=== PATIENT | female | born 1950 | race Caucasian/White ===

== ENCOUNTER → 2017-06-17 | Outpatient (CLI) | payer OTHER ==
[~2017-06-17] MED LIST: AMARYL2 MG PO; ASPIR 8181 MG PO; ATORVASTATIN CA40 MG PO; BENTYL 20 MG TA20 M1 PO; COQ-10100 MG PO; LANTUS; LANTUS INJECTION; LANTUS100 UNIT/M; LISINOPRIL10 MG PO; LYRICA 50 MG50 MG PO; LYRICA100 MG PO; METFORMIN HCL500 MG PO; MGO400 MG PO; NAMENDA 5 MG TAB5 M1 PO; NORVASC5 MG PO; ONDANSETRON HCL8 MG PO; QUESTRAN PACKET4 GM PO; RESTASIS1 EACH OPHTHALMIC; SLOW-MAG64 M1 PO; TRAMADOL 50 MG50 MG PO; TYLENOL ARTHRI650 MG PO; VITAMIN B-12500 MCG PO; VITAMIN D2000 UNIT PO; VOLTAREN GEL 1100 G2 TOP; ZANAFLEX2 MG PO; ZETIA10 MG PO
[2017-06-17 11:29] LABS: HEMOGLOBIN 12.7 gm/dL (12.0-15.0); MCH 27.4 pg (26.0-34.0); MCHC 32.6 g/dL (28.0-37.0); MCV 84.1 fL (80.0-100.0); RBC 4.63 mil/uL (4.20-5.00); RDW 15.2 % (10.5-14.5); WBC 13.2 thou/uL (4.0-11.0)
[2017-06-17 11:43] LABS: ALBUMIN 3.7 g/dL (3.4-5.0); ANION GAP 8 mmol/L (7-16); BUN 19 mg/dL (7-18); CALCIUM 9.7 mg/dL (8.5-10.1); CHLORIDE 100 mmol/L (98-107); CO2 28 mmol/L (21-32); CREATININE 1.5 mg/dL (0.6-1.0); GLUCOSE 185 mg/dL (74-106); POTASSIUM 5.1 mmol/L (3.5-5.1); SGOT 31 U/L (15-37); SGPT 47 U/L (30-65); SODIUM 136 mmol/L (136-145); TOTAL BILIRUBIN 0.5 mg/dL (<0.1-1.0); TOTAL PROTEIN 6.8 g/dL (6.4-8.2)
[2017-06-17 12:11] LABS: TSH 1.704 uIU/mL (0.358-3.740)
== END ==
LOC: SEN 09:43
PROVIDERS: Registered Nurse
DX: E11.9 Type 2 diabetes mellitus without complications (principal); I10 Essential (primary) hypertension; N28.89 Other specified disorders of kidney and ureter; I73.9 Peripheral vascular disease, unspecified; E11.40 Type 2 diabetes mellitus with diabetic neuropathy, unspecified; Z79.4 Long term (current) use of insulin

== ENCOUNTER → 2017-07-01 | Outpatient (CLI) | payer OTHER | LOC: SEN 08:24 | DX: E11.42 Type 2 diabetes mellitus with diabetic polyneuropathy (principal); G31.84 Mild cognitive impairment of uncertain or unknown etiology; I10 Essential (primary) hypertension; I63.8 Other cerebral infarction; M25.559 Pain in unspecified hip; M54.9 Dorsalgia, unspecified; Z79.4 Long term (current) use of insulin; Z96.0 Presence of urogenital implants ==

== ENCOUNTER → 2017-08-06 | Outpatient (CLI) | payer OTHER ==
[~2017-08-06] VITALS: Ht 160 cm; Wt 64.0 kg
[2017-08-06 13:27] VITALS: BP 158/101
[2017-08-06 14:56] LABS: ABSOLUTE NEUTROPHILS 7.3 thou/uL (1.4-8.2); BASOPHILS 0.8 % (0.0-2.0); EOSINOPHILS 2.3 % (0.0-3.0); HEMATOCRIT 39.4 % (37.0-47.0); MCHC 33.1 g/dL (28.0-37.0); MCV 81.6 fL (80.0-100.0); MONOCYTES 6.8 % (1.0-8.0); PLATELET COUNT 183 thou/uL (150-400); POLYS 74.1 % (36.0-66.0); RBC 4.83 mil/uL (4.20-5.00); WBC 9.8 thou/uL (4.0-11.0)
[2017-08-06 15:00] LABS: URINE BILIRUBIN NEGATIVE (Negative); URINE BLOOD NEGATIVE (Negative); URINE CLARITY CLEAR; URINE COLOR YELLOW; URINE GLUCOSE-RANDOM* 3+ (Negative); URINE KETONES NEGATIVE (Negative); URINE LEUKOCYTES-REFLEX NEGATIVE (Negative); URINE NITRITE-REFLEX NEGATIVE (Negative); URINE PROTEIN (DIPSTICK) NEGATIVE (Negative); URINE SPECIFIC GRAVITY 1.025 (1.005-1.035); URINE UROBILINOGEN 0.2 E.U./dl (0.2-1.0)
[2017-08-06 15:12] LABS: ALBUMIN 3.6 g/dL (3.4-5.0); CALCIUM 9.5 mg/dL (8.5-10.1); CREATININE 1.1 mg/dL (0.6-1.0); MAGNESIUM 1.7 mg/dL (1.8-2.4); POTASSIUM 4.3 mmol/L (3.5-5.1); TOTAL BILIRUBIN 0.3 mg/dL (<0.1-1.0); TOTAL PROTEIN 7.1 g/dL (6.4-8.2)
[2017-08-06 22:09] LABS: IgA 73 mg/dL (87-352); IgG 435 mg/dL (700-1600)
== END ==
LOC: SEN 08:45
PROVIDERS: Registered Nurse
DX: R19.7 Diarrhea, unspecified (principal); R10.9 Unspecified abdominal pain; E11.9 Type 2 diabetes mellitus without complications

== ENCOUNTER → 2017-11-21 | Outpatient (CLI) | payer OTHER, MEDICARE ==
[~2017-11-21] MED LIST changes: -LANTUS; -LANTUS100 UNIT/M; -RESTASIS1 EACH OPHTHALMIC; -SLOW-MAG64 M1 PO; -VITAMIN B-12500 MCG PO; -VITAMIN D2000 UNIT PO
[2017-11-21 13:32] VITALS: BP 149/87
[2017-11-21 14:47] LABS: ABSOLUTE NEUTROPHILS 7.3 thou/uL (1.4-8.2); BASOPHILS 0.9 % (0.0-2.0); EOSINOPHILS 6.2 % (0.0-3.0); HEMATOCRIT 41.8 % (37.0-47.0); HEMOGLOBIN 13.6 gm/dL (12.0-15.0); LYMPHOCYTES 18.7 % (24.0-44.0); MCH 26.1 pg (26.0-34.0); MCHC 32.5 g/dL (28.0-37.0); MCV 80.3 fL (80.0-100.0); MONOCYTES 6.5 % (1.0-8.0); PLATELET COUNT 195 thou/uL (150-400); POLYS 67.7 % (36.0-66.0); RBC 5.21 mil/uL (4.20-5.00); RDW 15.9 % (10.5-14.5); WBC 10.8 thou/uL (4.0-11.0)
[2017-11-21 15:03] LABS: ALBUMIN 3.6 g/dL (3.4-5.0); ANION GAP 10 mmol/L (7-16); BUN 12 mg/dL (7-18); CALCIUM 9.6 mg/dL (8.5-10.1); CHLORIDE 105 mmol/L (98-107); CHOLESTEROL 256 mg/dL (<200); CO2 27 mmol/L (21-32); CREATININE 1.3 mg/dL (0.6-1.0); GLUCOSE 215 mg/dL (74-106); HDL CHOLESTEROL 39 mg/dL (>40); LDL CHOLESTEROL 143 mg/dL (<100); MAGNESIUM 1.5 mg/dL (1.8-2.4); SGOT 19 U/L (15-37); SGPT 34 U/L (30-65); SODIUM 142 mmol/L (136-145); TC:HDL 6.6 Ratio (Not establshd); TOTAL BILIRUBIN 0.3 mg/dL (<0.1-1.0); TOTAL PROTEIN 7.1 g/dL (6.4-8.2); TRIGLYCERIDE 371 mg/dL (<150); VLDL 74 mg/dL (<40)
[2017-11-21 15:28] LABS: TSH 0.92 uIU/mL (0.358-3.740)
== END ==
LOC: SEN 07:58
PROVIDERS: Nurse Practitioner Family
DX: R63.4 Abnormal weight loss (principal); I10 Essential (primary) hypertension; E11.9 Type 2 diabetes mellitus without complications; F03.90 Unspecified dementia, unspecified severity, without behavioral disturbance, psychotic disturbance, mood disturbance, and anxiety; M62.838 Other muscle spasm

== ENCOUNTER → 2017-11-27 | Outpatient (CLI) | payer OTHER ==
[~2017-11-27] MED LIST changes: +LANTUS; +LANTUS100 UNIT/M
[2017-11-27 14:28] VITALS: BP 162/88
[2017-11-28 02:09] LABS: GLYCOHEMOGLOBIN (HGB A1C) 6.1 % (4.8-5.6)
== END ==
LOC: SEN 10:14
PROVIDERS: Nurse Practitioner Family
DX: Z09 Encounter for follow-up examination after completed treatment for conditions other than malignant neoplasm (principal); I10 Essential (primary) hypertension; E11.40 Type 2 diabetes mellitus with diabetic neuropathy, unspecified

== ENCOUNTER → 2018-01-05 | Outpatient (CLI) | payer OTHER ==
[~2018-01-05] MED LIST changes: +RESTASIS1 EACH OPHTHALMIC; +SLOW-MAG64 M1 PO; +VITAMIN B-12500 MCG PO; +VITAMIN D2000 UNIT PO
[2018-01-05 10:18] VITALS: BP 138/801
[2018-01-05 12:03] LABS: ABSOLUTE NEUTROPHILS 8.1 thou/uL (1.4-8.2); BASOPHILS 0.4 % (0.0-2.0); EOSINOPHILS 3.2 % (0.0-3.0); HEMATOCRIT 40.2 % (37.0-47.0); HEMOGLOBIN 13.1 gm/dL (12.0-15.0); LYMPHOCYTES 18.1 % (24.0-44.0); MCH 26.3 pg (26.0-34.0); MCHC 32.6 g/dL (28.0-37.0); MCV 80.9 fL (80.0-100.0); MONOCYTES 5.3 % (1.0-8.0); RBC 4.97 mil/uL (4.20-5.00); RDW 15.4 % (10.5-14.5)
[2018-01-05 12:18] LABS: ALBUMIN 3.7 g/dL (3.4-5.0); ANION GAP 8 mmol/L (7-16); BUN 18 mg/dL (7-18); CALCIUM 9.3 mg/dL (8.5-10.1); CHLORIDE 104 mmol/L (98-107); CHOLESTEROL 147 mg/dL (<200); CO2 28 mmol/L (21-32); CREATININE 1.2 mg/dL (0.6-1.0); GLUCOSE 216 mg/dL (74-106); HDL CHOLESTEROL 39 mg/dL (>40); LDL CHOLESTEROL 84 mg/dL (<100); MAGNESIUM 1.7 mg/dL (1.8-2.4); POTASSIUM 4.5 mmol/L (3.5-5.1); SGOT 20 U/L (15-37); SGPT 29 U/L (30-65); SODIUM 140 mmol/L (136-145); TC:HDL 3.8 Ratio (Not establshd); TOTAL BILIRUBIN 0.3 mg/dL (<0.1-1.0); TOTAL PROTEIN 7.5 g/dL (6.4-8.2); TRIGLYCERIDE 123 mg/dL (<150); VLDL 25 mg/dL (<40)
[2018-01-05 12:44] LABS: TSH 0.844 uIU/mL (0.358-3.740)
[2018-01-05 12:49] LABS: PLATELET COUNT 172 thou/uL (150-400); PLATELET ESTIMATE NORMAL
[2018-01-05 13:38] LABS: URINE BILIRUBIN NEGATIVE (Negative); URINE BLOOD NEGATIVE (Negative); URINE CLARITY CLOUDY; URINE COLOR YELLOW; URINE GLUCOSE-RANDOM* TRACE (Negative); URINE KETONES NEGATIVE (Negative); URINE LEUKOCYTES 2+ (Negative); URINE NITRITE POSITIVE (Negative); URINE PROTEIN (DIPSTICK) NEGATIVE (Negative); URINE SPECIFIC GRAVITY >= 1.030 (1.005-1.035); URINE UROBILINOGEN 0.2 E.U./dl (0.2-1.0)
[2018-01-05 13:44] LABS: SQUAMOUS 4-10 Moderate /LPF (0-3); URINE WBC >25 Many /HPF (0-5)
[2018-01-05 13:45] LABS: BACTERIA >30 Many /HPF (None Seen); CASTS None Seen /LPF (None Seen)
[2018-01-05 13:47] LABS: CRYSTALS None Seen /LPF (None Seen); URINE RBC None Seen /HPF (0-2)
== END ==
LOC: SEN 08:34
PROVIDERS: Nurse Practitioner Family
DX: M79.89 Other specified soft tissue disorders (principal); I10 Essential (primary) hypertension; E11.9 Type 2 diabetes mellitus without complications; E78.5 Hyperlipidemia, unspecified

== ENCOUNTER → 2018-03-16 | Outpatient (CLI) | payer OTHER ==
[2018-03-16 10:21] VITALS: BP 157/87
[2018-03-17 01:09] LABS: GLYCOHEMOGLOBIN (HGB A1C) 7.2 % (4.8-5.6)
== END ==
LOC: SEN 08:34
PROVIDERS: Nurse Practitioner Family
DX: Z09 Encounter for follow-up examination after completed treatment for conditions other than malignant neoplasm (principal); I10 Essential (primary) hypertension; E78.00 Pure hypercholesterolemia, unspecified; E78.5 Hyperlipidemia, unspecified; M19.90 Unspecified osteoarthritis, unspecified site; E11.40 Type 2 diabetes mellitus with diabetic neuropathy, unspecified; Z79.4 Long term (current) use of insulin

== ENCOUNTER → 2018-08-21 | Outpatient (CLI) | payer OTHER ==
[2018-08-21 11:46] LABS: ABSOLUTE NEUTROPHILS 8.5 thou/uL (1.4-8.2); BASOPHILS 0.6 % (0.0-2.0); EOSINOPHILS 2.2 % (0.0-3.0); HEMATOCRIT 41.3 % (37.0-47.0); HEMOGLOBIN 13.3 gm/dL (12.0-15.0); MCH 26.6 pg (26.0-34.0); MCHC 32.3 g/dL (28.0-37.0); MCV 82.3 fL (80.0-100.0); MONOCYTES 6.8 % (1.0-8.0); POLYS 72.4 % (36.0-66.0); RBC 5.01 mil/uL (4.20-5.00); RDW 14.8 % (10.5-14.5); WBC 11.8 thou/uL (4.0-11.0)
[2018-08-21 11:56] LABS: ALBUMIN 3.7 g/dL (3.4-5.0); CALCIUM 9.8 mg/dL (8.5-10.1); CREATININE 1.3 mg/dL (0.6-1.0); MAGNESIUM 1.8 mg/dL (1.8-2.4); POTASSIUM 4.3 mmol/L (3.5-5.1); TOTAL BILIRUBIN 0.3 mg/dL (<0.1-1.0); TOTAL PROTEIN 7.3 g/dL (6.4-8.2)
[2018-08-21 12:28] LABS: PLATELET COUNT 172 thou/uL (150-400)
[2018-08-22 01:09] LABS: GLYCOHEMOGLOBIN (HGB A1C) 9.4 % (4.8-5.6)
== END ==
LOC: SEN 08:55 → RAD 08:55
PROVIDERS: Nurse Practitioner Family
DX: M79.672 Pain in left foot (principal)

== ENCOUNTER → 2018-09-04 | Outpatient (CLI) | payer OTHER | LOC: SEN 08:50 | DX: E11.65 Type 2 diabetes mellitus with hyperglycemia (principal); Z79.4 Long term (current) use of insulin ==

== ENCOUNTER 2019-05-12 12:41 | Emergency (ER) | payer OTHER ==
[~2019-05-12] VITALS: Ht 160 cm; Wt 65.8 kg
[2019-05-12 13:11] LABS: ABSOLUTE NEUTROPHILS 6.3 thou/uL (1.4-8.2); HEMATOCRIT 42.2 % (37.0-47.0); HEMOGLOBIN 13.3 gm/dL (12.0-15.0); LYMPHOCYTES 19.6 % (24.0-44.0); MCH 26.1 pg (26.0-34.0); MCHC 31.6 g/dL (28.0-37.0); MCV 82.5 fL (80.0-100.0); MONOCYTES 6.2 % (1.0-8.0); PLATELET COUNT 169 thou/uL (150-400); POLYS 68.2 % (36.0-66.0); RBC 5.11 mil/uL (4.20-5.00); RDW 15.3 % (10.5-14.5); WBC 9.2 thou/uL (4.0-11.0)
[2019-05-12 13:24] LABS: CALCIUM 9.9 mg/dL (8.5-10.1); CREATININE 1.3 mg/dL (0.6-1.0); POTASSIUM 4.6 mmol/L (3.5-5.1)
[2019-05-12 13:29] LABS: ALBUMIN 3.6 g/dL (3.4-5.0); TOTAL BILIRUBIN 0.5 mg/dL (<0.1-1.0); TOTAL PROTEIN 6.9 g/dL (6.4-8.2)
[2019-05-12 14:13] LABS: URINE BILIRUBIN NEGATIVE (Negative); URINE BLOOD 1+ (Negative); URINE CLARITY CLOUDY; URINE COLOR YELLOW; URINE GLUCOSE-RANDOM* NEGATIVE (Negative); URINE KETONES NEGATIVE (Negative); URINE LEUKOCYTES-REFLEX 3+ (Negative); URINE NITRITE-REFLEX NEGATIVE (Negative); URINE PROTEIN (DIPSTICK) TRACE (Negative); URINE SPECIFIC GRAVITY >= 1.030 (1.005-1.035); URINE UROBILINOGEN 0.2 E.U./dl (0.2-1.0)
[2019-05-12 14:28] LABS: BACTERIA-REFLEX >30 Many /HPF (None Seen); CASTS None Seen /LPF (None Seen); SQUAMOUS None Seen /LPF (0-3)
[2019-05-12 14:29] LABS: CRYSTALS None Seen /LPF (None Seen); URINE RBC 3-10 Few /HPF (0-2)
[2019-05-12] MEDS ORDERED: BACTRIM DS TAB1 EAC1 PO (16:02)
[2019-05-12 16:33] VITALS: BP 135/84
--- NOTE | 2019-05-14 12:49 | EKG ---
[address] [address] ELECTROCARDIOGRAM REPORT Name: PATY CERON [facility] [id number] Admission: 05/12/19 Attend Phys: Discharge: 05/12/19 Date of : 52 Report #: [id number] THIS REPORT FOR: //name// [facility] ED Test Date: 2019-05-12 Test Time: 14:17:35 Pat Name: PATY CERON Department: Room: Gender: F Abnormal Psychology Teacher: : 1950 Requested By: Qiana Lopez Order Number: [id number] MD: Wily David Measurements Intervals [place] Rate: 75 P: 32 VT: 194 QRS: -13 QRSD: 87 T: 65 QT: 412 QTc: 461 Interpretive Statements Sinus rhythm Normal tracing No previous ECG available for comparison Electronically Signed On 05-14-2019 12:49:37 DATA CENTER OPERATOR by Wily David [email or web address] <ELECTRONICALLY SIGNED> By: Wily David MD, [facility] 05/14/19 1249 1417 1417 Wily David MD, FACC /EPI
== END 2019-05-12 16:59 | disposition home or self-care (01) ==
LOC: ER 12:41
PROVIDERS: Emergency Medicine
DX: N39.0 Urinary tract infection, site not specified (principal); E86.0 Dehydration; A41.9 Sepsis, unspecified organism; I10 Essential (primary) hypertension; E11.40 Type 2 diabetes mellitus with diabetic neuropathy, unspecified; E78.00 Pure hypercholesterolemia, unspecified; M19.90 Unspecified osteoarthritis, unspecified site; Z90.49 Acquired absence of other specified parts of digestive tract; Z79.4 Long term (current) use of insulin; Z88.1 Allergy status to other antibiotic agents

== ENCOUNTER 2019-05-16 13:03 | Inpatient (IN) | payer OTHER ==
[~2019-05-16] VITALS: Ht 160 cm; Wt 65.8 kg
[~2019-05-16 13:03] MED LIST changes: +BACTRIM DS TAB1 EAC1 PO
[2019-05-16 13:04] VITALS: BP 130/70
[2019-05-16 16:00] LABS: ABSOLUTE NEUTROPHILS 6.4 thou/uL (1.4-8.2); BASOPHILS 0.8 % (0.0-2.0); EOSINOPHILS 4.8 % (0.0-3.0); HEMATOCRIT 42.6 % (37.0-47.0); HEMOGLOBIN 13.6 gm/dL (12.0-15.0); LYMPHOCYTES 19.7 % (24.0-44.0); MCH 26.3 pg (26.0-34.0); MCHC 31.8 g/dL (28.0-37.0); MCV 82.6 fL (80.0-100.0); MONOCYTES 5.2 % (1.0-8.0); POLYS 69.5 % (36.0-66.0); RBC 5.16 mil/uL (4.20-5.00); RDW 15.6 % (10.5-14.5); WBC 9.2 thou/uL (4.0-11.0)
[2019-05-16 16:04] LABS: ANION GAP 13 mmol/L (7-16); BUN 18 mg/dL (7-18); CALCIUM 9.7 mg/dL (8.5-10.1); CHLORIDE 101 mmol/L (98-107); CO2 22 mmol/L (21-32); CREATININE 1.5 mg/dL (0.6-1.0); GLUCOSE 65 mg/dL (74-106); POTASSIUM 4.3 mmol/L (3.5-5.1); SODIUM 136 mmol/L (136-145)
[2019-05-16 16:13] LABS: TROPONIN-I <0.06 ng/mL (<0.06)
[2019-05-16 16:21] LABS: LARGE PLATELETS RARE; PLATELET COUNT 161 thou/uL (150-400)
[2019-05-16] MEDS ORDERED: BUPROPION XL300 MG PO (18:03)
[2019-05-16] MEDS ORDERED: ARICEPT10 M1 PO (18:03)
[2019-05-16] MEDS ORDERED: LISINOPRIL-HCT1 EACH PO (18:04)
[2019-05-16] MEDS ORDERED: PROBIOTIC1 EAC2 PO (18:05)
[2019-05-16] MEDS ORDERED: HUMALOG100 UNIT/2 SUBQ (18:06)
[2019-05-16] MEDS ORDERED: ONDANSETRON ODT8 MG PO (18:08)
[2019-05-16] MEDS ORDERED: TIZANIDINE HCL2 M1 PO (18:08)
[2019-05-16] MEDS ORDERED: TRAZODONE HCL50 MG PO (18:09)
[2019-05-16 18:16] VITALS: BP 123/60
[2019-05-16 18:35] VITALS: BP 119/59
--- NOTE | 2019-05-16 22:50 | NUR ---
PATIENT ARRIVED VIA CART FROM THE ED AT 1845 WITH HER SISTER. PATIENT IS ALERT AND ORIENTED X4. ORDERS REVIEWED AND IVF STARTED, ALSO PATIENT GIVEN SOMETHING FOR PAIN WITH GOOD RESULTS. PATIENTS SISTER IS HER DPOA AND SHE DOES NOT SIGN FOR HERSELF, THEREFORE, FALL CONTRACT, ETC. WILL BE REVIEWED AND SIGNED FOR WHEN SISTER RETURNS 05/17/19. WILL MONITOR.
[2019-05-17 04:10] VITALS: BP 141/76
--- NOTE | 2019-05-17 04:40 | NUR ---
PATIENT WAS NOTICED VOMITING BY THIS NURSE SHE WAS CALLING OUT. APPROXIMATELY 200ML OF CLEAR EMESIS WITH SOME UNIDENTIFIED CHUNKS FROM PREVIOUS DINNER AT HOME. RETAIL SALES TEAMMATE (HARSH) CALLED AND ORDER GIVEN FOR NAUSEA WHICH WAS GIVEN TO PATIENT WITH GOOD RESULTS. BS MONITORED PER ORDER. IVF INFUSING W/O COMPLICATION. RESTING WELL. WILL MONITOR.
--- NOTE | 2019-05-17 08:13 | EKG ---
[address] [address] ELECTROCARDIOGRAM REPORT Name: PATY CERON Room #: 445-P ADM IN M.R.#: [id number] Admission: 05/16/19 Attend Phys: Jake Trevino MD Discharge: Date of : 52 Report #: [id number] THIS REPORT FOR: //name// [facility] ED Test Date: 2019-05-16 Test Time: 15:56:18 Pat Name: PATY CERON Department: Room: [facility] Gender: F Acid Strength Inspector: GUSTABO : 1950 Requested By: Justen Coy Order Number: [id number] MD: Carmelo Espinosa Measurements Intervals [place] Rate: 89 P: 23 CA: 179 QRS: -18 QRSD: 88 T: 76 QT: 369 QTc: 449 Interpretive Statements Sinus rhythm Probable left atrial enlargement Borderline left axis deviation Baseline wander in lead(s) II,III,aVF Compared to ECG 05/12/2019 14:17:35 No significant changes Electronically Signed On 05-17-2019 8:13:07 E COMMERCE WEB DEVELOPER by Carmelo Espinosa [email or web address] <ELECTRONICALLY SIGNED> By: Carmelo Espinosa MD 05/17/19 0813 1556 1556 Carmelo Espinosa MD /EPI
[2019-05-17 08:59] VITALS: BP 123/79
--- NOTE | 2019-05-17 09:26 | NUR ---
Nutrition: Assessed due to consult for DM diet education. Admit: UTI, frequent falls, weakness. Hx: diabetes, stroke, neuropathy. Reports DM x 12 yrs. On insulin at home, but unable to share what DM meds she takes. Sister/district ranger assists w/ meds as pt is "unable to keep them straight." Last A1c 9.4% per 08/2018. States she is due for PCP visit this month. States insulin dose was increased after last A1c, hoping it will be lower. Mindful of PO intake and reads CHO on labels closely. Discouraged regular soda consumption. Discussed CHO content of various foods, recommended she limit meals to 45 g CHO and 15 g at snacks paired w/ protein. She looks for lots of items w/ < 10 g CHO. Has to watch food intake closely w/ IBS; avoids high fiber/greasy. Denies further nutrition ed neesd or takehome materials. Low nutrition risk.
[2019-05-17 11:35] LABS: CALCIUM 8.8 mg/dL (8.5-10.1); CREATININE 1.4 mg/dL (0.6-1.0); POTASSIUM 4.9 mmol/L (3.5-5.1)
--- NOTE | 2019-05-17 12:23 | NUR ---
INITIAL ASSESSMENT: Pt evaluated for d/c planning needs. Reviewed chart and spoke with nurse, PT and pt. Pt is alert and oriented. Pt said she had stroke about 2 years ago and went to [facility] inpatient rehab. Pt was d/c home from rehab with home health, but pt does not recall name of company. Pt lives alone in apartment and was independent with ADL's prior to admission. Pt said she has fallen 6 times since Halloween. Pt's sister is supportive and involved and lives about 3 minutes from pt's apartment. Pt is interested in going to inpatient rehab. Asked rehabilitation program coordinator to evaluate pt. Will remain available to assist as needed.
--- NOTE | 2019-05-17 14:45 | NUR ---
ASSUMED CARE OF THE PT AT 0700. PT IS MODERATE ASSIST AND REQUIRES ADDITIONAL TIME TO GET TO THE BEDSIDE COMMODE. PTS SISTER IS DPOA AND NEEDS TO SIGN THE PPWK FOR THE PT. PT HAS HAD EMESIS SINCE 3AM AND HAS BEEN TREATED WITH MEDICATION, SEE EMAR. A UA IS NEEDED FOR THE PT FOR LAB. PT HAS FALLEN 5X THIS MONTH AND 3X THIS WEEK AT HOME. SISTER WANTS FRAME STYLIST TO PROVIDE INFORMATION ON EITHER HOME HEALTH CARE OR ASSISTED LIVING FACILITY. L LEG BRACE, SCDS AND BRUSING ON THE R SIDE. PTS PAIN IS BEING TREATED WITH PAIN MEDICATION, SEE EMAR. PT TRANSFERED TO [facility] AND REPORT WAS GIVEN TO THE NURSE.
--- NOTE | 2019-05-17 15:27 | NUR ---
SW reviewed chart and spoke with nursing and attending physician. [facility] today. [facility] consult ordered to evaluate pt for possible admission to inpt acute rehab. Will need insurance authorization for post-acute. ANGELITO is following to assist as needed with discharge planning.
[2019-05-17 16:42] VITALS: BP 128/71
--- NOTE | 2019-05-17 19:50 | NUR ---
PATIENT TRANSFERRED FROM [address] [place] [address], REPORT FROM OLIVIA/RN. PATIENT ALERT AND ORIENTED X 3. PATIENT UP WITH MOD. ASSIST WITH GAIT BELT AND WALKER. LEFT LEG BRACE, BRUISE TO RIGHT SIDE. PATIENT IS A FALL RISK, HAS FALLEN MULTIPLE TIMES IN THE PAST 2 WEEKS. MRI OF HEAD DONE TODAY. CONSULT CALLED FOR REHAB/[facility]. BLOOD SUGAR MONITORING ORDERED S/S INSULIN GIVEN PER S/S. PATIENT C/O NAUSEA AND VOMITING NOTED MODERATE AMT. OF YELLOWISH EMESIS NOTED. THIS RN CALLED JOHN BENÍTEZ ORDER FOR ZOFRAN 4MG IV Q6HRS/PRN AND START PROTONIX 40 MG IV DAILY, FIRST DOSE GIVEN AROUND 1430. PATIENT STATES STOMACH FEELS BETTER, SHE WAS ABLE TO EAT HER DINNER. LEFT FOREARM IV IN PLACE, FLUSHED AND REMAINS PATENT. WILL CONTINUE TO MONITOR.
[2019-05-17 20:45] VITALS: BP 108/54
--- NOTE | 2019-05-18 04:27 | NUR ---
Assumed pt care at 1900. A/OX4,VSS.Up with moderate assist to BSC. C/o pain to hips/right ribcage medicated with Tramadol with relief reported. IVF infusing via LAC without problems. Fall precautions in place,pt calls approp.
[2019-05-18 07:29] VITALS: BP 106/60
[2019-05-18 13:32] VITALS: BP 93/61
--- NOTE | 2019-05-18 14:22 | NUR ---
SW reviewed chart and spoke with nursing and attending physician. [facility] evaluated pt earlier today. Awaiting confirmation of rehab admission dx. [facility] will submit for insurance authorization if pt is appropriate. SW is following to assist as needed with discharge planning.
--- NOTE | 2019-05-18 15:51 | NUR ---
PATIENT SEEN THIS DATE BY RIVKA BRAY NP WITH DR. DORSEY. PATIENT MAY BE A POTENTIAL CANDIDATE FOR ACUTE REHAB. WILL CONTINUE TO FOLLOW AND SEE RESULTS FROM FURTHER TESTING. BANK VAULT ATTENDANT INFORMED. THANK YOU FOR THIS REFERRAL.
--- NOTE | 2019-05-18 19:49 | NUR ---
ASSUMED CARE OF PATIENT AT 0715, PATIENT ALERT AND ORIENTED X4. PATIENT UP WITH MOD-MAX ASSIST WITH GAIT BELT AND WALKER. PATIENT WORKED WITH PT/OT, RECIEVED A SHOWER TODAY. PATIENT WAS UP IN THE CHAIR FOR A COUPLE OF HRS. TODAY. PATIENT C/O PAIN WITH LEFT HIP AREA/ RECEIVED TYLENOL 650 MG X 1 THIS SHIFT. PATIENT HAS LEFT FOREARM IV WITH NS AT 75CC/HR. DR MACARIO SAW THE PATIENT TODAY, ORDER IN FROM [facility]/GENERAL ENGINEERING TEACHER OF REHAB FOR MRI OF LEFT HIP AND LUMBAR SPINE. MRI CALLED WILL DO MRI TOMORROW, SCREENING FORM DONE. WILL CONTINUE TO MONITOR. PATIENT WILL BE POSSIBLY GOING TO [facility] SOON.
[2019-05-18 20:40] VITALS: BP 112/66
--- NOTE | 2019-05-19 04:24 | NUR ---
Assumed pt care at 1900. Pt is A/OX4 with forgetfulness noted. VSS.C/o pain to right ribcage/left hip medicated with Tylenol with relief reported. Pt is up with moderate assist to BSC,voiding adequately without complaints of dysuria. PO intake encouraged and pt agreeable to. IVF infusing as well without problems.Pt supposed to have an MRI of the lumbar spine today. Fall precautions in place,calls approp. Will continue to monitor pt.
[2019-05-19 08:44] VITALS: BP 143/82
[2019-05-19 10:39] LABS: URINE BILIRUBIN NEGATIVE (Negative); URINE BLOOD NEGATIVE (Negative); URINE CLARITY CLEAR; URINE COLOR YELLOW; URINE GLUCOSE-RANDOM* NEGATIVE (Negative); URINE KETONES NEGATIVE (Negative); URINE LEUKOCYTES-REFLEX NEGATIVE (Negative); URINE NITRITE-REFLEX NEGATIVE (Negative); URINE PROTEIN (DIPSTICK) NEGATIVE (Negative); URINE SPECIFIC GRAVITY <= 1.005 (1.005-1.035); URINE UROBILINOGEN 0.2 E.U./dl (0.2-1.0)
[2019-05-19] MEDS ORDERED: METFORMIN HCL500 MG PO (12:08)
[2019-05-19] MEDS ORDERED: CYMBALTA20 MG PO (12:08)
[2019-05-19] MEDS ORDERED: NEURONTIN 300300 M1 PO (12:08)
[2019-05-19] MEDS ORDERED: PHENERGAN 25 MG25 M1 PO (12:08)
[2019-05-19] MEDS ORDERED: AUGMENTIN 500-1 EACH PO (12:08)
[2019-05-19] MEDS ORDERED: TRAZODONE HCL50 MG PO (12:08)
--- NOTE | 2019-05-19 12:31 | NUR ---
SW reviewed chart and spoke with nursing and attending physician. Pt is progressing towards goals for discharge. SW discussed case with [facility] spinning operator, who states they submitted for insurance authorization today. ANGELITO met with pt at bedside to provide update and discuss discharge plan. Pt is agreeable with going to [facility] if insurance approves. SW provided pt with in-network SNF list for review. Pt asks SW to contact her sister, Beverly, to provide update and discuss discharge. SW spoke with pt's sister via phone and provided update. Pt's sister verbalized understanding. ANGELITO reviewed SNF options with pt's sister, who requests a SNF referral to be sent to [facility] for review as a back up option if [facility] is not authorized. shoe planner to fax referral for review. ANGELITO is following to assist as needed with discharge planning.
--- NOTE | 2019-05-19 14:28 | NUR ---
PATIENT IS A CANDIDATE FOR ACUTE REHAB WITH QUALIFYING DX. AUTHORIZATION FROM INSURANCE COMPANY, [facility], REQUESTED FOR ACUTE INPATIENT REHAB STAY. AWAITING A RESPONSE. THANK YOU FOR THIS REFERRAL.
--- NOTE | 2019-05-19 14:55 | NUR ---
PT A&OX4, FORGETFUL AT TIMES. TRANSFERS WITH ASSIST X1 AND GAIT BELT. ORDERS TO CALL NEURO FOR CLEARENCE TO DC TO REHAB. BOTH OFFICE AND ANSWERING SERVICE UNABLE TO REACH. DC ORDERS WERE RECEIVED THOUGH PENDING INSURANCE AUTH. TOLERATING TYLENOL FOR PAIN WITH ADEQ. RELEIF. CALLS OUT APPROP., CALL LIGHT W/I REACH.
--- NOTE | 2019-05-19 15:52 | NUR ---
DISCHARGE PLANNING. ANTICIPATED DISCHARGE TO POST ACUTE CARE ONCE MEDICALLY READY. PATIENT REFERRAL FAXED TO [facility] FOR [facility] C[facility] NEEDS. CALL PLACED TO [facility]. SPOKE WITH KATHY IN ADMISSIONS. KATHY TO REVIEW AND NOTIFY CM IF THEY CAN ACCEPT CLINICALLY. [facility] FOLLOWING PATIENT WELL. FOLLOWING TO ASSIST.
[2019-05-19 18:39] VITALS: BP 132/80
[2019-05-19 21:27] VITALS: BP 140/88
--- NOTE | 2019-05-20 03:48 | NUR ---
Assumed pt care at 1900. A/OX4,pleasant with cares.VSS. C/o pain to right ribcage with movement medicated with Tylenol with relief reported. Up with minimal assist GB/RW to the bathroom and tolerating well. Pt has no IV access since she was supposed to dc to Rehab 05/19 and IV was dc'd,pt declined IV being reinserted as she hopes to dc today. Fall precautions in place,calls approp. Resting with no distress noted, call light/personal items within reach.
[2019-05-20 07:16] VITALS: BP 130/88
--- NOTE | 2019-05-20 12:38 | NUR ---
ANGELITO reviewed chart and spoke with nursing and attending physician. SW discussed case with [facility] cardiac rehab nurse. Awaiting input from insurance at this time. ANGELITO spoke with pt's sister, Beverly, via phone to provide update. Pt's sister states she is working with an organization to help find AL placement on the [place] side. Awaiting input from [facility] if they can accept if insurance does not approve [facility]. ANGELITO is following to assist as needed with discharge planning.
[2019-05-20 14:30] VITALS: BP 120/62
--- NOTE | 2019-05-20 15:21 | NUR ---
RECEIVED CALL FROM RENY AT [facility]. Pt DENIED AUTHORIZATION FOR ACUTE REHAB D/T Pt BEING TOO LOW LEVEL. Pt MORE APPROPRIATE FOR SNF SETTING. PHYSICIAN CAN COMPLETE PEER TO PEER BY 3 PM TOMORROW (05/21/19) AT [phone]. ANGELITO/CM NOTIFIED.
[2019-05-20 20:04] VITALS: BP 140/88
--- NOTE | 2019-05-21 03:51 | NUR ---
PATIENT ALERT AND ORIENTED X4. C/O PAIN WITH MED GIVEN. UP TO BATHROOM WITH ASSIST OF ONE, GB AND WALKER. SLEPT MOST OF NIGHT. ACCUCHECK WAS 214, RECEIVED 4 UNITS LISPRO INSULIN.
[2019-05-21 08:56] VITALS: BP 120/73
--- NOTE | 2019-05-21 14:04 | NUR ---
DISCHARGE NOTE: SW reviewed chart and spoke with nursing and attending physician. Pt is medically stable for discharge to [facility] today. [facility] did obtain insurance authorization and will provide w/c van transportation at 1500 today per facility's arrangements. SW met with pt at bedside to provide update and discuss discharge plan. Pt is aware and agreeable with plan. principal planner faxed disharge orders/summary to [facility] and notified pt's sister, Beverly. Chart copy requested. Nursing provided with number to call report. No additional SW needs identified at this time, but is available to assist should needs arise.
--- NOTE | 2019-05-21 17:11 | NUR ---
ASSUMED CARE OF PATIENT AT 0715, PATIENT ALERT AND ORIENTED X 4. UP WITH MIN-MOD ASSIST WITH GAIT BELT AND WALKER. PATIENT UP TO THE CHAIR FOR BREAKFAST. NO C/O PAIN THIS AM, BUT C/O LOW-BACK PAIN THIS AFTERNOON AND HEADACHE, TYLENOL 650 MG GIVEN WITH GOOD RELIEF. BLOOD SUGAR MONITORING ORDERED, S/S INSULIN GIVEN PER BLOOD SUGAR READING, LUNCH BLOOD SUGAR 173, 3 UNITS GIVEN, RIGHT LOWER ANDOMEN. PATIENT WILL BE DISCHARGED TO [facility], REPORT GIVEN TO NINO/RN AT THE FACILITY. ALL DISCHARGE PAPERWORK AND ALL PERSONAL BELONGINGS SENT WITH THE PATIENT.
== END 2019-05-21 16:41 | DRG 74 ==
LOC: ER 13:03 → 4N 18:08 → 4S 18:08 → EROBS 18:08 → 4S 18:25 → 4N 05-17 11:39
PROVIDERS: Emergency Medicine; ADMIT Hospitalist
DX: E11.42 Type 2 diabetes mellitus with diabetic polyneuropathy (principal); N17.9 Acute kidney failure, unspecified; N39.0 Urinary tract infection, site not specified; G93.40 Encephalopathy, unspecified; F03.90 Unspecified dementia, unspecified severity, without behavioral disturbance, psychotic disturbance, mood disturbance, and anxiety; K58.9 Irritable bowel syndrome, unspecified; E78.00 Pure hypercholesterolemia, unspecified; M19.90 Unspecified osteoarthritis, unspecified site; F41.9 Anxiety disorder, unspecified; R29.6 Repeated falls; E78.5 Hyperlipidemia, unspecified; F01.50 Vascular dementia, unspecified severity, without behavioral disturbance, psychotic disturbance, mood disturbance, and anxiety; E11.22 Type 2 diabetes mellitus with diabetic chronic kidney disease; N18.2 Chronic kidney disease, stage 2 (mild); I12.9 Hypertensive chronic kidney disease with stage 1 through stage 4 chronic kidney disease, or unspecified chronic kidney disease; Z96.49 Presence of other endocrine implants; E11.51 Type 2 diabetes mellitus with diabetic peripheral angiopathy without gangrene; M62.84 Sarcopenia; E55.9 Vitamin D deficiency, unspecified; Z66 Do not resuscitate; B96.1 Klebsiella pneumoniae [K. pneumoniae] as the cause of diseases classified elsewhere; R53.81 Other malaise; Z60.2 Problems related to living alone; M48.07 Spinal stenosis, lumbosacral region; M51.16 Intervertebral disc disorders with radiculopathy, lumbar region; Z90.49 Acquired absence of other specified parts of digestive tract; Z79.899 Other long term (current) drug therapy; Z79.4 Long term (current) use of insulin; Z79.84 Long term (current) use of oral hypoglycemic drugs; Z88.1 Allergy status to other antibiotic agents; Z86.73 Personal history of transient ischemic attack (TIA), and cerebral infarction without residual deficits; Z82.49 Family history of ischemic heart disease and other diseases of the circulatory system; Z82.3 Family history of stroke; Z83.3 Family history of diabetes mellitus
CPT/HCPCS: 10091; 10195